=== PATIENT | female | born 1985 | race Two or more races ===

== ENCOUNTER → 2019-01-05 | Day surgery (SDC) | payer OTHER ==
[~2019-01-05] MED LIST: LEVOTHYROXINE25 MCG PO
== END | disposition home or self-care (01) ==
LOC: CIR.AMB 07:00
DX: O02.1 Missed abortion (principal); Z3A.01 Less than 8 weeks gestation of pregnancy

== ENCOUNTER 2020-06-20 09:55 | Outpatient (CLI) | payer OTHER | END 2020-06-20 10:12 | disposition home or self-care (01) | LOC: NST 09:55 | PROVIDERS: ATTEND Obstetrics & Gynecology | DX: Z34.82 Encounter for supervision of other normal pregnancy, second trimester (principal) ==

== ENCOUNTER 2020-07-18 11:31 | Outpatient (CLI) | payer OTHER | END 2020-07-18 12:17 | disposition home or self-care (01) | LOC: NST 11:31 | PROVIDERS: ATTEND Obstetrics & Gynecology Maternal & Fetal Medicine | DX: Z34.83 Encounter for supervision of other normal pregnancy, third trimester (principal) ==

== ENCOUNTER 2020-08-22 09:47 | Outpatient (CLI) | payer OTHER | END 2020-08-22 10:33 | disposition home or self-care (01) | LOC: NST 09:47 | PROVIDERS: ATTEND Obstetrics & Gynecology Maternal & Fetal Medicine | DX: Z34.83 Encounter for supervision of other normal pregnancy, third trimester (principal) ==

== ENCOUNTER 2020-09-22 13:45 | Inpatient (IN) | payer OTHER ==
[~2020-09-22] VITALS: Ht 160 cm; Wt 3.2 kg
[2020-09-29] MEDS ORDERED: SYNTHROID200 MCG PO (12:50)
[2020-09-29] MEDS ORDERED: AZELASTINE205.5 MCG/ (13:33)
[2020-09-29] MEDS ORDERED: FOLIC ACID1 MG (13:33)
[2020-09-29] MEDS ORDERED: SYNTHROID50 MCG (13:33)
== END 2020-10-02 12:53 | disposition home or self-care (01) | DRG 788 ==
LOC: SURG-SUITE 09-29 11:49 → LDR 09-29 11:49 → O/R 09-29 17:29 → SURG-SUITE 09-29 18:27 → OB/GYN 10-05 13:45
PROVIDERS: ADMIT Obstetrics & Gynecology; ATTEND Obstetrics & Gynecology
PROC: 4A1HXFZ Monitoring of Products of Conception, Cardiac Rhythm, External Approach (ICD-10-PCS; 2020-09-29)
PROC: 10D00Z1 Extraction of Products of Conception, Low, Open Approach (ICD-10-PCS; principal; 2020-09-29 14:45)
DX: O14.14 Severe pre-eclampsia complicating childbirth (principal); O99.824 Streptococcus B carrier state complicating childbirth; O99.284 Endocrine, nutritional and metabolic diseases complicating childbirth; E03.9 Hypothyroidism, unspecified; Z37.0 Single live birth; Z3A.39 39 weeks gestation of pregnancy

== ENCOUNTER 2020-10-04 17:31 | Emergency (ER) | payer OTHER ==
[~2020-10-04] VITALS: Ht 162.6 cm; Wt 113.4 kg
[~2020-10-04 17:31] MED LIST changes: +AZELASTINE205.5 MCG/; +FOLIC ACID1 MG; +SYNTHROID200 MCG PO; +SYNTHROID50 MCG
== END 2020-10-04 21:40 | disposition home or self-care (01) ==
LOC: ER 17:31 → CPU-OBS 17:35 → ER 21:40
DX: R07.89 Other chest pain (principal); I16.0 Hypertensive urgency; I10 Essential (primary) hypertension
CPT/HCPCS: G0378; G0379; 93005

== ENCOUNTER 2025-02-25 22:48 | Emergency (ER) | payer OTHER ==
[~2025-02-25] VITALS: Ht 160 cm; Wt 108.0 kg
[2025-02-25 23:18] VITALS: BP 138/90; O2SAT 100
[2025-02-25] MEDS ORDERED: SYMBICORT 16010.2 GM IH (23:23)
[2025-02-26] MEDS ORDERED: 0.9 % SODIUM CHLORIDE 1,000 ML IV SCH (00:15)
[2025-02-26 01:25] LABS: URINE APPEARANCE Clear; URINE BILIRRUBIN Negative (NEGATIVE); URINE BLOOD Moderate; URINE COLOR Yellow; URINE GLUCOSE Negative (NEGATIVE); URINE KETONE 15 (NEGATIVE); URINE LEUKOCYTE Negative; URINE NITRATE Negative; URINE PROTEIN Negative (NEGATIVE); URINE UROBILINOGEN 0.2 E.U./dl
[2025-02-26 01:26] LABS: URINE BACTERIA 386.3 uL (0.0-1933); URINE EPITHELIAL CELLS 17.3 uL (0.0-38.8); URINE RBC 17.8 uL (0.0-20.8); URINE WBC 3.2 uL (0.0-23.2)
[2025-02-26 01:35] LABS: URINE CAST 0.00 uL (0.0-1.40)
[2025-02-26 01:43] LABS: BASO % 0.2 % (0.1-1.2); EOS # 0.30 (0.04-0.54); EOS % 3.3 % (0.7-7.0); LYMPH # 2.75 (1.18-3.74); LYMPH % 30.0 % (19.3-53.1); MEAN PLATELET VOLUME 9.00 fl (9.4-12.4); MONO # 0.62 (0.24-0.82); MONO % 6.8 % (4.7-12.5); NEUT # 5.44 (1.56-6.13); NEUT % 59.4 % (34.0-71.1); RED CELL DISTRIBUTION WIDTH 13.3 % (11.6-14.4)
[2025-02-26 01:45] LABS: INR < 0.93
[2025-02-26 01:52] LABS: ALT/SGPT 37.0 U/L (12-78); AST/SGOT 21.0 U/L (15-37); BILIRUBIN TOTAL 0.29 mg/dL (0.3-1.2); BUN CREA RATIO 15.0 (7.0-25.0); CREATININE SERUM 1.16 mg/dL (0.55-1.02); GFR 51.48; GLOBULINA 3.0 G/DL (2.4-3.5); GLUCOSE FASTING 106.0 mg/dL (65-100); HCG QUANTITATIVE 160.0 mUI/mL (1-3); OSMOLALITY SERUM 281.0 MOSM/KG (275-295)
[2025-02-26] MEDS ORDERED: KETOROLAC TROMETHAMINE 30 MG VIAL ONE (05:42)
[2025-02-26] MEDS ORDERED: KETOROLAC TROMETHAMINE 30 MG VIAL IU ONE (05:45)
== END 2025-02-26 06:15 | disposition home or self-care (01) ==
LOC: ER 22:48
PROVIDERS: Physician Assistant Medical
DX: O03.9 Complete or unspecified spontaneous abortion without complication (principal); J45.909 Unspecified asthma, uncomplicated; E03.8 Other specified hypothyroidism; N80.8 Other endometriosis